=== PATIENT | female | born 1975 | race Caucasian/White ===

== ENCOUNTER 2020-09-01 09:13 | Emergency (ER) | payer OTHER ==
[~2020-09-01] VITALS: Ht 170.2 cm; Wt 88.5 kg
[2020-09-01] MEDS ORDERED: AVAPRO300 MG PO (09:20)
[2020-09-01] MEDS ORDERED: BLISOVI 24 FE1 EACH PO (09:21)
[2020-09-01 09:52] LABS: CALCIUM 8.5 mg/dL (8.5-10.1); CREATININE 0.6 mg/dL (0.6-1.3); POTASSIUM 3.6 mmol/L (3.5-5.1)
[2020-09-01 09:53] LABS: ABSOLUTE LYMPHOCYTES 1.3 thou/uL (0.8-5.3); ABSOLUTE MONOCYTES 0.8 thou/uL (0.0-1.2); BASOPHILS 0.4 %; EOSINOPHILS 0.3 %; HEMATOCRIT 41.2 % (37.0-47.0); HEMOGLOBIN 13.8 gm/dL (12.0-15.0); LYMPHOCYTES 17.9 %; MCH 30.5 pg (26.0-34.0); MCHC 33.5 g/dL (28.0-37.0); MCV 90.8 fL (80.0-100.0); MONOCYTES 10.7 %; MPV 8.3 fl. (7.2-11.1); NUCLEATED RBCS 0 /100WBC; PLATELET COUNT* 226 thou/uL (150-400); POLYS 70.7 %; RBC 4.53 mil/uL (4.20-5.00); RDW-CV 13.5 % (10.5-14.5); WBC 7.1 thou/uL (4.0-11.0)
[2020-09-01 09:57] LABS: ALBUMIN 3.6 g/dL (3.4-5.0); TOTAL BILIRUBIN 0.4 mg/dL (<0.1-1.0); TOTAL PROTEIN 7.6 g/dL (6.4-8.2)
[2020-09-01 10:13] LABS: PROTIME 10.3 Seconds (9.20-11.50)
[2020-09-01] MEDS ORDERED: ZPAK PO (10:43)
[2020-09-01] MEDS ORDERED: PREDNISONE 20 M20 M1 PO (10:43)
[2020-09-01 10:50] VITALS: BP 111/81
--- NOTE | 2020-09-01 14:25 | EKG ---
[place] [address] ELECTROCARDIOGRAM REPORT Name: ADAN ARREDONDO Room: [facility]#: [id number] Admission: 09/01/20 Attend Phys: Discharge: 09/01/20 Date of : 73 Date of Service: 09/01/2039 Report #: [id number] THIS REPORT FOR: //name// [facility] ED Test Date: 2020-09-01 Test Time: 09:39:55 Pat Name: ADAN ARREDONDO Department: Room: Gender: F [employer] Attendant: [facility] : 1975 Requested By: Joce Grande Order Number: [id number] MD: Morales Han Measurements Intervals [place] Rate: 83 P: 12 VT: 157 QRS: 22 QRSD: 98 T: 5 QT: 392 QTc: 461 Interpretive Statements Sinus rhythm No previous ECG available for comparison Electronically Signed On 09-01-2020 14:25:05 [employer] by Morales Han [email or web address] <ELECTRONICALLY SIGNED> By: Morales Han MD, [facility] 09/01/20 1425 0939 8 Morales Han MD, FACC /EPI
== END 2020-09-01 11:18 | disposition home or self-care (01) ==
LOC: M.ERS 09:13
PROVIDERS: Family Medicine
DX: U07.1 COVID-19 (principal); R20.2 Paresthesia of skin; Z79.899 Other long term (current) drug therapy